=== PATIENT | male | born 1960 | race Caucasian/White ===

== ENCOUNTER 2020-01-10 08:45 | Emergency (ER) | payer OTHER, SELFPAY ==
--- NOTE | 2020-01-10 09:33 | RAD ---
Exam:Right ankle 3 views HISTORY: Trauma. Pain. COMPARISON: None FINDINGS: No fracture, cortical irregularity or periosteal reaction. Joint spaces are preserved. Ther e is medial soft tissue swelling. IMPRESSION: Medial soft tissue swelling, without fracture.
== END 2020-01-10 09:35 | disposition home or self-care (01) ==
LOC: MADERS 08:45
DX: S90.01XA Contusion of right ankle, initial encounter (principal); F17.210 Nicotine dependence, cigarettes, uncomplicated; W22.8XXA Striking against or struck by other objects, initial encounter
CPT/HCPCS: 99283

== ENCOUNTER 2020-01-15 10:33 | Outpatient (CLI) | payer OTHER ==
--- NOTE | 2020-01-15 11:22 | RAD ---
RIGHT LEG 2 VIEWS: Date: 01/15/2020 HISTORY: Injury, right leg pain. FINDINGS/IMPRESSION: The right tibia and fibula are intact. POS: [facility]
== END 2020-01-15 10:34 | disposition home or self-care (01) ==
LOC: MADRAD 10:33
PROVIDERS: ATTEND Physician Assistant
DX: S89.91XA Unspecified injury of right lower leg, initial encounter (principal)